=== PATIENT | female | born 1985 | race Caucasian/White ===

== ENCOUNTER → 2017-06-01 | Outpatient (CLI) | payer BC ==
[2017-06-01 08:46] LABS: CH 31.3; CHCM 34.9; HCT 38.6 % (34.0-46.0); HDW 2.58; HGB 13.8 gm/dL (11.4-16.0); MCH 32.3 pg (25.0-35.0); MCHC 35.9 g/dL (31.0-37.0); MCV 90.1 fL (80.0-100.0); Mean Platelet Volume 7.5; RBC 4.28 m/uL (3.80-5.40); RDW 12.9 % (11.5-15.5); WBC 7.3 k/uL (3.8-10.6)
[2017-06-01 09:16] LABS: Glucose 83 mg/dL (74-99); Non-African American GFR(MDRD) >60 (>60 ml/min/1.73 sqM)
[2017-06-01 09:40] LABS: Hepatitis B Surface Ag Index 0.04
[2017-06-01 15:49] LABS: Treponemal Ab Non-Reactive (Non-Reactive)
== END | disposition home or self-care (01) ==
LOC: LABWHC1 07:59
PROVIDERS: ATTEND Obstetrics & Gynecology
DX: Z34.01 Encounter for supervision of normal first pregnancy, first trimester (principal); R53.83 Other fatigue
CPT/HCPCS: 36415; 82565; 82947; 84439; 84443; 85027; 86762; 86780; 86850; 86900; 86901; 87340; 87390

== ENCOUNTER → 2017-06-01 | Outpatient (CLI) | payer BC ==
--- NOTE | 2017-06-02 06:51 | US ---
EXAMINATION TYPE: US OB <= 14 wk fetus DATE OF EXAM: 06/01/2017 COMPARISON: NONE CLINICAL HISTORY: Z36 CONFIRM DATES. Confirm Dates, pt has no other complaints at this time EXAM PERFORMED: Transabdominal (TA) EXAM MEASUREMENTS: GESTATIONAL AGE / DATING Physician Established: (12 weeks/6 days) EDC: 12/08/2017 Dates by LMP: (12 weeks/6 days) EDC: 12/08/2017 Dates by First Scan: No prior Dates by Current Scan for: (11 weeks/5 days) EDC: 12/16/2017 MATERNAL ANATOMY Uterus: 14.9 x 6.5 x 10.4 cm/ Hypoechoic lesion posterior uterus= 1.7 x 1.1 x 1.5 cm ?pedunculated fi broid Right Ovary: 3.9 x 2.3 x 2.1 cm Left Ovary: 2.6 x 2.0 x 2.1 cm Post CDS / Adnexa: wnl Presence of free fluid: No Presence of corpus luteal cyst: Right Ovary= 1.9 x 1.9 x 2.0 cm Presence of subchorionic bleed: No GESTATION / SURVEY CRL: 4.9 cm (11 weeks/5 days) MSD: wnl Heart Rate: 153 bpm Rhythm: Normal IUP: Viable IUP Nuchal Translucency 10-14wks (normal less than 3mm): 1mm Date of LMP: 03/03/2017 Single live intrauterine gestation is confirmed as gestational sac and pole are seen. Yolk sac is not clearly identified. No free fluid is seen in pelvic cul-de-sac. Both ovaries are identified. In the periphery of the right ovary there is 1.9 cm hypoechoic lesion fe lt to reflect corpus luteal cyst. No suspicious extraovarian adnexal mass is noted. IMPRESSION: Single live intrauterine gestation is confirmed, mean crown-rump length is 4.9 cm corresponding to 11 week 5 day old fetus.
== END | disposition home or self-care (01) ==
LOC: RADUSWWP 16:17
PROVIDERS: ATTEND Obstetrics & Gynecology
DX: Z36 Encounter for antenatal screening of mother (principal); Z3A.11 11 weeks gestation of pregnancy
CPT/HCPCS: 76801; 76813

== ENCOUNTER → 2017-07-30 | Outpatient (CLI) | payer BC | END | disposition home or self-care (01) | LOC: LABWHC1 08:33 | PROVIDERS: ATTEND Obstetrics & Gynecology | DX: Z34.00 Encounter for supervision of normal first pregnancy, unspecified trimester (principal); Z3A.00 Weeks of gestation of pregnancy not specified | CPT/HCPCS: 36415; 81241 ==

== ENCOUNTER 2017-12-08 00:08 | Inpatient (IN) | payer BC ==
[2017-12-08] MEDS ORDERED: LIDOCAINE 1% (PF) 10 MG/ML (30 ML SDV) SQ PRN (00:50)
[2017-12-08] MEDS ORDERED: METHYLERGONOVINE 0.2 MG/ML 1 ML AMP IM PRN (00:50)
[2017-12-08] MEDS ORDERED: CARBOPROST TROMETHAMINE 250 MCG/ML 1 ML AMP IM PRN (00:50)
[2017-12-08] MEDS ORDERED: TERBUTALINE 1 MG/ML VIAL SQ PRN (00:50)
[2017-12-08] MEDS ORDERED: OXYTOCIN 10 UNIT/ML 1 ML VIAL IM PRN (00:50)
[2017-12-08] MEDS ORDERED: LACTATED RINGERS 1,000 ML IV SCH ×2 (01:00)
[2017-12-08] MEDS ORDERED: OXYTOCIN 20 UNITS/1000 ML NS 1,000 ML IV SCH ×2 (01:00→09:45)
[2017-12-08 01:29] LABS: Basophils % (A) 0 %; Eosinophils # (A) 0.1 k/uL (0-0.7); Eosinophils % (A) 1 %; HCT 35.5 % (34.0-46.0); HGB 11.8 gm/dL (11.4-16.0); Hypochromasia Slight; Lymphocytes # (A) 1.5 k/uL (1.0-4.8); Lymphocytes % (A) 17 %; MCH 29.7 pg (25.0-35.0); MCHC 33.1 g/dL (31.0-37.0); MCV 89.7 fL (80.0-100.0); Mean Platelet Volume 11.2; Monocytes # (A) 0.5 k/uL (0-1.0); Monocytes % (A) 6 %; Neutrophils # (A) 6.6 k/uL (1.3-7.7); Neutrophils % (A) 75 %; Platelet Count 122 k/uL (150-450); RBC 3.96 m/uL (3.80-5.40); RDW 15.5 % (11.5-15.5); WBC 8.8 k/uL (3.8-10.6)
[2017-12-08 01:38] LABS: INR 0.9 (<1.2); Partial Thromboplastin Time 22.1 sec (22.0-30.0); Prothrombin Time 9.4 sec (9.0-12.0)
[2017-12-08 01:40] LABS: ALT 29 U/L (9-52); AST 21 U/L (14-36); Blood Urea Nitrogen 8 mg/dL (7-17); LDH 496 U/L (313-618); Uric Acid 5.6 mg/dL (3.7-7.4)
[2017-12-08 01:49] VITALS: BMI 29.2
[2017-12-08 02:03] LABS: Large Platelets Present
[2017-12-08] MEDS ORDERED: SODIUM CHLORIDE 0.9% 100 ML BAG ONE (02:30)
[2017-12-08] MEDS ORDERED: BUPIVACAINE (PF) 0.25% 30 ML VIAL ONE (02:30)
[2017-12-08] MEDS ORDERED: fentaNYL (PF) 50 MCG/ML 5 ML AMP ONE (02:30)
[2017-12-08] MEDS ORDERED: BUPIVACAINE (PF) 0.25% 25 ML, fentaNYL (PF) 200 MCG in SODIUM CHLORIDE 0.9% 71 ML EPIDURAL ONE (03:06)
[2017-12-08 04:06] LABS: Appearance,Urine Clear (Clear); Bilirubin,Urine Negative (Negative); Blood,Urine Moderate (Negative); Color,Urine Yellow; Glucose,Urine (UA) Negative (Negative); Ketones,Urine 1+ (Negative); Leukocyte Esterase,Urine Negative (Negative); Mucus,Urine Few /hpf; Nitrite,Urine Negative (Negative); PH, Urine 6.5 (5.0-8.0); Protein,Urine Trace (Negative); RBC,Urine 84 /hpf (0-5); Specific Gravity,Urine 1.018 (1.001-1.035); Squamous Epithelial Cell,Urine 1 /hpf (0-4); Urobilinogen,Urine <2.0 mg/dL (<2.0); WBC,Urine 1 /hpf (0-5)
[2017-12-08] MEDS ORDERED: diphenhydrAMINE 50 MG/ML 1 ML VIAL IVP PRN (09:34)
[2017-12-08] MEDS ORDERED: LANOLIN CREAM 5 GM TUBE TOPICAL PRN (09:34)
[2017-12-08] MEDS ORDERED: SIMETHICONE 80 MG CHEWABLE PO PRN (09:34)
[2017-12-08] MEDS ORDERED: BISACODYL 10 MG SUPP RECTAL PRN (09:34)
[2017-12-08] MEDS ORDERED: ZOLPIDEM 5 MG TAB PO PRN (09:34)
[2017-12-08] MEDS ORDERED: WITCH HAZEL 1 EACH MED..PAD TOPICAL PRN (09:34)
[2017-12-08] MEDS ORDERED: ACETAMINOPHEN TAB 325 MG TAB PO PRN (09:34)
[2017-12-08] MEDS ORDERED: HYDROCORTISONE 2.5% RECTAL CREAM 30 GM TUBE RECTAL PRN (09:34)
[2017-12-08] MEDS ORDERED: BENZOCAINE/MENTHOL SPRAY 1 GM/SPRAY AEROSOL TOPICAL PRN (09:34)
[2017-12-08] MEDS ORDERED: Acetaminophen-Codeine 300-30mg TAB PO PRN ×2 (09:34)
[2017-12-08] MEDS ORDERED: diphenhydrAMINE 25 MG CAP PO PRN (09:34)
[2017-12-08] MEDS: IBUPROFEN 600 MG TAB PO PRN ×2 (09:49→20:04)
--- NOTE | 2017-12-08 12:19 | P.HPOB ---
History of Present Illness H&P Date: 12/08/17 Chief Complaint: Leaking fluid. This patient is a pleasant 32-year-old 1 para 0 female estimated date of confinement 12/16 2017 estimated gestational age 38-6/7 weeks gestation who is admitted last evening by Dr. Guardado with gush of fluid that occurred at approximately 11:30. Patient's care is per Dr. Lauren and appears to be uncomplicated. Patient is having some contractions that are irregular. Review of Systems Gastrointestinal: Reports heartburn Genitourinary: Reports Menstruation: Reports amenorrhea Past Medical History Past Medical History: Thyroid Disorder History of Any Multi-Drug Resistant Organisms: None Reported, MRSA Date of last positivie culture/infection: 04/15/16 MDRO Source:: face Past Surgical History: No Surgical Hx Reported Additional Past Surgical History / Comment(s): wisdom teeth Past Anesthesia/Blood Transfusion Reactions: No Reported Reaction Additional Past Anesthesia/Blood Transfusion Reaction / Comment(s): never had transfusion Past Psychological History: No Psychological Hx Reported Smoking Status: Never smoker Past Alcohol Use History: Rare Past Drug Use History: None Reported - Past Family History Father Family Medical History: Hypertension Medications and Allergies Home Medications Medication Instructions Recorded Confirmed Type Cephalexin [Keflex] 500 mg PO Q6HR 04/15/16 12/08/17 History Levothyroxine Sodium [Synthroid] 50 mcg PO DAILY 04/15/16 12/08/17 History Sulfamethox-Tmp 800-160Mg [Bactrim 2 each PO Q12HR #40 tab 04/15/16 12/08/17 Rx DS 800-160 mg] Pnv No.95/Ferrous Fum/Folic AC 1 tab PO ONCE 12/08/17 12/08/17 History [ Multivitamin Tablet] Allergies Allergy/AdvReac Type Severity Reaction Status Date / Time No Known Allergies Allergy Verified 04/15/16 03:12 Exam - Vital Signs Vital signs: Vital Signs Temp Pulse Resp BP Pulse Ox 12/08/17 11:37 97 16 139/80 12/08/17 11:06 93 14 129/79 12/08/17 10:37 98.8 F 84 16 135/62 12/08/17 10:22 78 14 132/68 12/08/17 10:07 78 14 131/64 12/08/17 09:51 90 14 132/90 12/08/17 09:37 98.3 F 100 18 153/70 12/08/17 01:33 97.9 F 77 16 128/61 12/08/17 00:31 84 18 175/89 99 Intake and Output 12/07/17 12/08/17 12/08/17 22:59 06:59 14:59 Intake Total 1000 Balance 1000 Intake: IV 1000 Lactated Ringers 1,000 ml 1000 @ 999 mls/hr IV .Q1H1M [facility] Rx#:[id number] Other: # Voids 1 Weight 72.575 kg - OBG Physical Exam Abdomen: bowel sounds normal, no diffuse tenderness, no bruit present, no guarding noted, no hepatomegaly, no splenomegaly, no mass Vulva: both: normal Vagina: normal moisture, no discharge Cervix: no lesion, no discharge Uterus: enlarged (Fundal height is consistent with a term .) Results blood work shows she is A positive, rubella immune, RPR nonreactive, hepatitis B negative, HIV nonreactive, Glucola was 158 with a normal three-hour gtt. Patient did have a mild thrombocytopenia of 123 at the time of her Glucola. Ultrasounds have been normal. Result Diagrams: 12/08/17 01:20 12/08/17 01:20 Abnormal Lab Results - Last 24 Hours (Table) 12/08/17 12/08/17 12/08/17 Range/Units 01:20 01:20 03:42 Plt Count 122 L (150-450) k/uL Fibrinogen 518 H (200-500) mg/dL Urine Protein Trace H (Negative) Urine Ketones 1+ H (Negative) Urine Blood Moderate H (Negative) Urine RBC 84 H (0-5) /hpf Urine Mucus Few H (None) /hpf Assessment and Plan Assessment: This is a pleasant 32-year-old 1 para 0 female 38-6/7 weeks gestation with spontaneous rupture membranes and early active labor. Plan was admission for delivery. (1) Spontaneous rupture of amniotic membranes Current Visit: Yes Status: Acute Code(s): PAT1482 - SNOMED Code(s): 376837449 (2) Third trimester Current Visit: Yes Status: Acute Code(s): Z34.93 - ENCNTR FOR SUPRVSN OF NORMAL PREG, UNSP, THIRD TRIMESTER SNOMED Code(s): 61307334
--- NOTE | 2017-12-08 12:23 | P.PROBDLV ---
Vaginal Delivery Note - . Vaginal Delivery Note: Normal vaginal delivery viable male infant Apgars are 8 and 9 at 0913 hrs. Please see dictated H&P for intimate details of this patient's admission. Brief summary this is a pleasant 32-year-old 1 para 0 female 38-6/7 weeks gestation admitted to labor and delivery spontaneous rupture membranes and early labor. Patient's labor does progress and she has rupture of a fore bag earlier this morning. Patient's labor progresses quickly thereafter and she pushes the head to the perineum. Posterior perineum is supported and we have controlled delivery of the infant's head over the intact perineum. There is no evidence of a nuchal cord. I bulb suction the mouth and nose. The anterior shoulder spontaneously delivers and then the posterior shoulder and rest this 's body. This is a vigorous viable male Apgars are 8 and 9 delivery time was 0913 hrs. After delivery of the infant the umbilical cord is doubly clamped and cut appears to be trivascular. The placenta is spontaneously delivered intact. Estimated blood loss is 150 mL. Inspection of perineum shows a left labial laceration and a second-degree posterior vaginal laceration of the perineum both of which repaired with 3-0 Vicryl in the usual fashion in good reapproximation is noted. All counts are correct 3. There are no complications. and mother stable delivery room.
[2017-12-08] MEDS: SENNOSIDES-DOCUSATE SODIUM 1 EACH TAB PO SCH (20:05)
[2017-12-08 20:23] VITALS: RESP 16
--- NOTE | 2017-12-09 06:17 | P.PNOBGVD ---
Subjective - Subjective Patient reports: Reports appetite normal, Reports voiding normally, Reports pain well controlled, Reports ambulating normally : doing well Objective - Latest Vital Signs Latest vital signs: Vital Signs Temp Pulse Resp BP Pulse Ox 12/09/17 04:00 16 12/09/17 00:00 98.1 F 77 16 129/78 12/08/17 20:00 98.2 F 84 16 138/73 12/08/17 16:00 97.8 F 94 17 122/70 98 12/08/17 11:37 97 16 139/80 12/08/17 11:06 93 14 129/79 12/08/17 10:37 98.8 F 84 16 135/62 12/08/17 10:22 78 14 132/68 12/08/17 10:07 78 14 131/64 12/08/17 09:51 90 14 132/90 12/08/17 09:37 98.3 F 100 18 153/70 Intake and Output 12/08/17 12/08/17 12/09/17 14:59 22:59 06:59 Intake Total 1950 Balance 1950 Intake: IV 1200 Lactated Ringers 1,000 ml 1200 @ 999 mls/hr IV .Q1H1M [facility] Rx#:[id number] Intake, IV Titration 750 Amount Oxytocin 20 Units/1000 ml 750 Ns 1,000 ml @ Per Protocol IV .Q0M [facility] Rx#: [id number] Other: # Voids 1 - Exam Lungs: bilateral: normal Chest: Normal S1, Normal S2 Extremities: Present: normal Abdomen: Present: normal appearance, soft Uterus: Present: normal, firm Assessment and Plan Assessment: Patient is resting without complaints and wishes to go home. Vital signs are stable she is afebrile. Uterus is firm nontender she's having normal lochia. My impression this is a normal course. Plan is to continue routine care and discharge home later today. (1) Spontaneous rupture of amniotic membranes Current Visit: Yes Status: Acute Code(s): IUH6436 - SNOMED Code(s): 412564001 (2) Third trimester Current Visit: Yes Status: Acute Code(s): Z34.93 - ENCNTR FOR SUPRVSN OF NORMAL PREG, UNSP, THIRD TRIMESTER SNOMED Code(s): 57417380
--- NOTE | 2017-12-09 06:19 | P.DS ---
Providers Date of admission: 12/08/17 00:30 Expected date of discharge: 12/09/17 Attending physician: Gloria Lauren Primary care physician: Stated None - Discharge Diagnosis(es) (1) Spontaneous rupture of amniotic membranes Current Visit: Yes Status: Acute (2) Third trimester Current Visit: Yes Status: Acute Hospital Course: Please see dictated H&P for intimate details of this patient's admission. Brief summary this is a 32-year-old 1 para 0 female 38-6/7 weeks gestation admitted to labor and delivery with spontaneous rupture membranes in early labor. Patient was on have a vaginal delivery viable male infant. Please see dictated delivery note. day #1 patient without complaints and wishes to go home. Patient's felt stable discharge home follow up with Dr. Lauren Procedures: Normal spontaneous vaginal delivery Patient Condition at Discharge: Good Plan - Discharge Summary Discharge Rx Participant: No New Discharge Prescriptions: New Ibuprofen [Motrin] 600 mg PO Q6HR PRN #40 tab PRN Reason: Mild Pain Or Fever >= 100.5 No Action Cephalexin [Keflex] 500 mg PO Q6HR Levothyroxine Sodium [Synthroid] 50 mcg PO DAILY Sulfamethox-Tmp 800-160Mg [Bactrim DS 800-160 mg] 2 each PO Q12HR #40 tab Pnv No.95/Ferrous Fum/Folic AC [ Multivitamin Tablet] 1 tab PO ONCE Discharge Medication List Cephalexin [Keflex] 500 mg PO Q6HR 04/15/16 [History] Levothyroxine Sodium [Synthroid] 50 mcg PO DAILY 04/15/16 [History] Sulfamethox-Tmp 800-160Mg [Bactrim DS 800-160 mg] 2 each PO Q12HR #40 tab [Rx] Pnv No.95/Ferrous Fum/Folic AC [ Multivitamin Tablet] 1 tab PO ONCE [History] Ibuprofen [Motrin] 600 mg PO Q6HR PRN #40 tab 12/09/17 [Rx] Follow up Appointment(s)/Referral(s): Gloria Lauren DO [Doctor of Osteopathic Medicine] - 6 Weeks Patient Instructions/Handouts: Vaginal Delivery (DC) Activity/Diet/Wound Care/Special Instructions: No intercourse or anything per vagina for 6 weeks. Please call if any fever, chills, excessive vaginal bleeding, and/or abdominal pain. Discharge Disposition: HOME SELF-CARE
[2017-12-09 11:48] VITALS: BP 134/72; PULSE 98; TEMP 98.8
[2017-12-09] MEDS: SENNOSIDES-DOCUSATE SODIUM 1 EACH TAB PO SCH (11:50)
== END 2017-12-09 13:50 | disposition home or self-care (01) | DRG 775 ==
LOC: FBPOP 00:08 → 4FBP 00:30
PROVIDERS: ADMIT Obstetrics & Gynecology; ATTEND Obstetrics & Gynecology
PROC: 10E0XZZ Delivery of Products of Conception, External Approach (ICD-10-PCS; principal; 2017-12-08)
PROC: 0KQM0ZZ Repair Perineum Muscle, Open Approach (ICD-10-PCS; 2017-12-08)
PROC: 00HU33Z Insertion of Infusion Device into Spinal Canal, Percutaneous Approach (ICD-10-PCS; 2017-12-08)
PROC: 3E0R3BZ Introduction of Anesthetic Agent into Spinal Canal, Percutaneous Approach (ICD-10-PCS; 2017-12-08)
DX: O70.1 Second degree perineal laceration during delivery (principal); Z37.0 Single live birth; E07.9 Disorder of thyroid, unspecified; O99.284 Endocrine, nutritional and metabolic diseases complicating childbirth; Z3A.38 38 weeks gestation of pregnancy; Z79.899 Other long term (current) drug therapy; Z86.14 Personal history of Methicillin resistant Staphylococcus aureus infection
CPT/HCPCS: 59025; 81001; 82565; 83615; 84112; 84450; 84460; 84520; 84550; 85025; 85384; 85610; 85730; 88307; 99213

== ENCOUNTER → 2018-10-17 | Outpatient (CLI) | payer BC ==
[2018-10-17 08:18] LABS: HCT 47.7 % (34.0-46.0); HGB 15.4 gm/dL (11.4-16.0); MCH 30.8 pg (25.0-35.0); MCHC 32.3 g/dL (31.0-37.0); MCV 95.6 fL (80.0-100.0); Mean Platelet Volume 8.4; Platelet Count 198 k/uL (150-450); RBC 4.99 m/uL (3.80-5.40); RDW 12.6 % (11.5-15.5); WBC 4.2 k/uL (3.8-10.6)
[2018-10-17 20:58] LABS: ACTH 12.6 pg/mL (0.00-45.99)
== END | disposition home or self-care (01) ==
LOC: LABWHC1 07:51
PROVIDERS: ATTEND Internal Medicine Endocrinology, Diabetes & Metabolism
DX: R53.83 Other fatigue (principal)
CPT/HCPCS: 36415; 82024; 82533; 82607; 84146; 85027

== ENCOUNTER → 2018-10-20 | Outpatient (CLI) | payer BC ==
--- NOTE | 2018-10-21 09:40 | US ---
EXAMINATION TYPE: US thyroid st tissue head/neck DATE OF EXAM: 10/20/2018 COMPARISON: US 2013 CLINICAL HISTORY: E04.9 Nontoxic goiter, unspecified. Goiter GLAND SIZE: Right Lobe: 5.9 x 1.7 x 1.7 cm Overall Parenchyma: heterogenous Left Lobe: 4.6 x 1.5 x 1.6 cm Overall Parenchyma: heterogeneous Isthmus Thickness: 0.5 cm Bilateral neck scanned, no evidence of lymphadenopathy. Bilateral thyroid grossly heterogeneous bilat erally and slightly hypervascular IMPRESSION: Diffusely enlarged and heterogenous thyroid gland is slightly hypervascular. Findings can be seen in thyroiditis. Correlate with serum laboratory values. No discrete nodule.
== END ==
LOC: RADUSWWP 16:44
PROVIDERS: ATTEND Internal Medicine Endocrinology, Diabetes & Metabolism
DX: E04.9 Nontoxic goiter, unspecified (principal)
CPT/HCPCS: 76536

== ENCOUNTER → 2018-11-08 | Outpatient (CLI) | payer BC | END | disposition home or self-care (01) | LOC: LABWHC1 12:52 | PROVIDERS: ATTEND Internal Medicine Endocrinology, Diabetes & Metabolism | DX: E03.8 Other specified hypothyroidism (principal); R53.83 Other fatigue | CPT/HCPCS: 36415; 84445; 86376 ==

== ENCOUNTER → 2018-11-22 | Outpatient (CLI) | payer BC | END | disposition home or self-care (01) | LOC: LABWHC1 17:09 | PROVIDERS: ATTEND Internal Medicine Endocrinology, Diabetes & Metabolism | DX: E03.8 Other specified hypothyroidism (principal) | CPT/HCPCS: 36415; 84443 ==

== ENCOUNTER → 2019-01-31 | Outpatient (CLI) | payer BC | LOC: LABWHC1 16:44 | PROVIDERS: ATTEND Internal Medicine Endocrinology, Diabetes & Metabolism | DX: E03.8 Other specified hypothyroidism (principal) | CPT/HCPCS: 36415; 84443 ==

== ENCOUNTER → 2019-10-24 | Outpatient (CLI) | payer BC | END | disposition home or self-care (01) | LOC: LABWHC1 07:03 | PROVIDERS: ATTEND Internal Medicine Endocrinology, Diabetes & Metabolism | DX: E03.8 Other specified hypothyroidism (principal) | CPT/HCPCS: 36415; 84443 ==

== ENCOUNTER → 2019-10-26 | Outpatient (CLI) | payer BC ==
--- NOTE | 2019-10-26 18:02 | US ---
EXAMINATION TYPE: US thyroid st tissue head/neck DATE OF EXAM: 10/26/2019 COMPARISON: 10/20/2018 CLINICAL HISTORY: E04.1 Nontoxic single nodule. No hx of thyroid biopsy. On thyroid meds. GLAND SIZE: Right Lobe: 4.4 x 1.6 x 1.3 cm Overall Parenchyma: heterogenous Left Lobe: 4.2 x 1.6 x 1.2 cm Overall Parenchyma: heterogeneous Isthmus Thickness: 0.4 cm NODULES RIGHT: # of nodules measured on right: 0 LEFT: # of nodules measured on left: 0 ISTHMUS: # of nodules measured in the isthmus: 0 Bilateral neck scanned, no evidence of lymphadenopathy. IMPRESSION: 1. Thyroid tissue is heterogeneous without evidence of discrete nodule correlate for thyroiditis. The re is interval reduction in the size of the thyroid gland.
== END | disposition home or self-care (01) ==
LOC: RADUSWWP 16:13
PROVIDERS: ATTEND Internal Medicine Endocrinology, Diabetes & Metabolism
DX: E04.1 Nontoxic single thyroid nodule (principal)
CPT/HCPCS: 76536

== ENCOUNTER → 2019-12-19 | Outpatient (CLI) | payer BC | END | disposition home or self-care (01) | LOC: LABWHC1 07:06 | PROVIDERS: ATTEND Internal Medicine Endocrinology, Diabetes & Metabolism | DX: E03.8 Other specified hypothyroidism (principal) | CPT/HCPCS: 36415; 84443 ==

== ENCOUNTER → 2020-06-25 | Outpatient (CLI) | payer BC ==
[2020-06-25 12:20] LABS: T4, Free (Free Thyroxine) 1.2 ng/dL (0.80-1.80)
== END | disposition home or self-care (01) ==
LOC: LABWHC1 07:03
PROVIDERS: ATTEND Internal Medicine Endocrinology, Diabetes & Metabolism
DX: E04.1 Nontoxic single thyroid nodule (principal); E03.8 Other specified hypothyroidism
CPT/HCPCS: 36415; 84439; 84443

== ENCOUNTER → 2020-12-24 | Outpatient (CLI) | payer BC ==
--- NOTE | 2020-12-24 12:57 | US ---
EXAMINATION TYPE: US thyroid st tissue head/neck DATE OF EXAM: 12/24/2020 COMPARISON: US US 10/26/18, 10/20/18 CLINICAL HISTORY: E03.8 HYPOTHYROIDISM. GLAND SIZE: Right Lobe: 5.0 x 1.3 x 1.2 cm Overall Parenchyma: heterogenous Left Lobe: 4.3 x 1.3 x 1.2 cm Overall Parenchyma: heterogeneous Isthmus Thickness: 0.4 cm NODULES RIGHT: # of nodules measured on right: 0 LEFT: # of nodules measured on left: 0 ISTHMUS: # of nodules measured in the isthmus: 0 Bilateral neck scanned, no evidence of lymphadenopathy. Heterogeneous texture bilaterally. IMPRESSION: 1. Mild heterogeneity. Discrete nodules are not identified
== END | disposition home or self-care (01) ==
LOC: RADUSWWP 12:16
PROVIDERS: ATTEND Internal Medicine Endocrinology, Diabetes & Metabolism
DX: E03.8 Other specified hypothyroidism (principal)
CPT/HCPCS: 76536; 84443

== ENCOUNTER → 2021-07-03 | Outpatient (CLI) | payer BC | END | disposition home or self-care (01) | LOC: LABWHC1 14:15 | PROVIDERS: ATTEND Internal Medicine Endocrinology, Diabetes & Metabolism | DX: E03.8 Other specified hypothyroidism (principal) | CPT/HCPCS: 36415; 84443 ==

== ENCOUNTER → 2021-12-29 | Outpatient (CLI) | payer BC | END | disposition home or self-care (01) | LOC: LABWHC1 07:09 | PROVIDERS: ATTEND Internal Medicine Endocrinology, Diabetes & Metabolism | DX: E03.8 Other specified hypothyroidism (principal) | CPT/HCPCS: 36415; 84443 ==

== ENCOUNTER → 2022-02-16 | Outpatient (CLI) | payer BC ==
[2022-02-16 10:34] LABS: T4, Free (Free Thyroxine) 1.21 ng/dL (0.800-1.800)
== END | disposition home or self-care (01) ==
LOC: LABWHC1 07:07
PROVIDERS: ATTEND Internal Medicine Endocrinology, Diabetes & Metabolism
DX: E03.8 Other specified hypothyroidism (principal); R53.83 Other fatigue
CPT/HCPCS: 36415; 82533; 84439; 84443; 84480

== ENCOUNTER → 2022-05-17 | Outpatient (CLI) | payer BC ==
[2022-05-17 14:30] LABS: Estradiol 34.3 pg/mL
[2022-05-17 14:34] LABS: African American GFR (CKD) 129.7 (60.0-200.0); Albumin 4.3 g/dL (3.8-4.9); Albumin/Globulin Ratio 1.6 (1.60-3.17); Anion Gap 9.8 mmol/L (10.00-18.00); BUN/Creat Ratio 18.81 Ratio (12.00-20.00); Calcium 9.2 mg/dL (8.7-10.3); Carbon Dioxide 26.3 mmol/L (20.0-27.5); Follicle Stimulating Hormone 7.1 mIU/mL; Globulin 2.7 g/dL (1.6-3.3); Luteinizing Hormone 16.3 mIU/mL; Non-African American GFR(CKD) 111.9 (60.0-200.0); Potassium 4.7 mmol/L (3.5-5.5); Prolactin 14.6 ng/mL (2.800-29.200); Total Bilirubin 0.2 mg/dL (0.30-1.20); Total Protein 7.1 g/dL (6.2-8.2)
== END | disposition home or self-care (01) ==
LOC: LABWHC1 07:17
PROVIDERS: ATTEND Internal Medicine Endocrinology, Diabetes & Metabolism
DX: E03.8 Other specified hypothyroidism (principal); R79.89 Other specified abnormal findings of blood chemistry
CPT/HCPCS: 36415; 80053; 82024; 82533; 82670; 83001; 83002; 84146; 84443

== ENCOUNTER → 2022-11-17 | Outpatient (CLI) | payer BC | END | disposition home or self-care (01) | LOC: LABWHC1 15:47 | PROVIDERS: ATTEND Internal Medicine Endocrinology, Diabetes & Metabolism | DX: E03.8 Other specified hypothyroidism (principal); R79.89 Other specified abnormal findings of blood chemistry | CPT/HCPCS: 36415; 84443 ==

== ENCOUNTER → 2022-11-19 | Outpatient (CLI) | payer BC ==
--- NOTE | 2022-11-19 18:11 | US ---
EXAMINATION TYPE: US venous doppler duplex LE RT DATE OF EXAM: 11/19/2022 5:40 PM COMPARISON: NONE CLINICAL HISTORY: M79.604 R22.40. Pain in right leg x 2 days. No hx of DVT. Patient does not take bl ood thinners. SIDE PERFORMED: Right TECHNIQUE: The lower extremity deep venous system is examined utilizing real time linear array sonog mahin with graded compression, doppler sonography and color-flow sonography. VESSELS IMAGED: Common Femoral Vein Deep Femoral Vein Greater Saphenous Vein * Femoral Vein Popliteal Vein Small Saphenous Vein * Proximal Calf Veins (* superficial vessels) Right Leg: No evidence of DVT in veins imaged. IMPRESSION: No evidence of deep vein thrombosis of the right lower extremity.
== END | disposition home or self-care (01) ==
LOC: RADUSWWP 17:13
PROVIDERS: ATTEND Family Medicine
DX: M79.604 Pain in right leg (principal); R22.40 Localized swelling, mass and lump, unspecified lower limb

== ENCOUNTER 2022-12-05 21:35 | Emergency (ER) | payer BC ==
[2022-12-05 21:42] VITALS: TEMP 98.5
[2022-12-05] MEDS ORDERED: ONDANSETRON 4 MG/2 ML VIAL IVP STA (21:57)
[2022-12-05] MEDS ORDERED: SODIUM CHLORIDE 0.9% 1,000 ML IV STA (21:57)
[2022-12-05] MEDS ORDERED: KETOROLAC 15 MG/ML 1 ML VIAL IVP STA (21:57)
[2022-12-05] MEDS ORDERED: MORPHINE SULFATE 4 MG/ML SYRINGE IVP STA (21:58)
--- NOTE | 2022-12-05 21:59 | ED ---
Abdominal Pain HPI - General Chief Complaint: Abdominal Pain Stated Complaint: Abdominal pain Time Seen by Provider: 12/05/22 21:45 Source: patient, RN notes reviewed, old records reviewed Mode of arrival: ambulatory Limitations: no limitations - History of Present Illness Initial Comments: This is a 37-year-old female to the ER today. Patient presents today for evaluation regards to abdominal pain epigastric abdominal pain right upper quadrant abdominal pain with nausea. Diminished appetite no vomiting. Family state without difficulty. Patient states symptoms started after she woke up and event persistent but intermittent and she currently has no significant pain. Patient has no medical history takes no medications is no surgical history MD Complaint: abdominal pain -: hour(s) Location: RUQ, epigastric Radiation: RUQ, epigastric Migration to: epigastric Severity: moderate Severity scale (1-10): 6 Quality: fullness, sharp Consistency: intermittent Improves With: nothing Worsens With: nothing Context: other (0) Associated Symptoms: nausea Treatments Prior to Arrival: other (0) - Related Data Home Medications Medication Instructions Recorded Confirmed Cephalexin [Keflex] 500 mg PO Q6HR 04/15/16 12/08/17 Levothyroxine Sodium [Synthroid] 50 mcg PO DAILY 04/15/16 12/08/17 Pnv No.95/Ferrous Fum/Folic AC 1 tab PO ONCE 12/08/17 12/08/17 [ Multivitamin Tablet] Previous Rx's Medication Instructions Recorded Sulfamethox-Tmp 800-160Mg [Bactrim 2 each PO Q12HR #40 tab 04/15/16 DS 800-160 mg] Ibuprofen [Motrin] 600 mg PO Q6HR PRN #40 tab 12/09/17 Allergies Allergy/AdvReac Type Severity Reaction Status Date / Time No Known Allergies Allergy Verified 04/15/16 03:12 Review of Systems ROS Statement: Those systems with pertinent positive or pertinent negative responses have been documented in the HPI. ROS Other: All systems not noted in ROS Statement are negative. Past Medical History Past Medical History: Thyroid Disorder History of Any Multi-Drug Resistant Organisms: None Reported, MRSA Date of last positivie culture/infection: 04/15/16 MDRO Source:: face Past Surgical History: No Surgical Hx Reported Additional Past Surgical History / Comment(s): wisdom teeth Past Anesthesia/Blood Transfusion Reactions: No Reported Reaction Additional Past Anesthesia/Blood Transfusion Reaction / Comment(s): never had transfusion Past Psychological History: No Psychological Hx Reported Smoking Status: Never smoker Past Alcohol Use History: Rare Past Drug Use History: None Reported - Past Family History Father Family Medical History: Hypertension General Exam Limitations: no limitations General appearance: alert, in no apparent distress Head exam: Present: atraumatic, normocephalic, normal inspection Eye exam: Present: normal appearance, PERRL, EOMI. Absent: scleral icterus, conjunctival injection, periorbital swelling ENT exam: Present: normal exam, mucous membranes moist Neck exam: Present: normal inspection. Absent: tenderness, meningismus, lymphadenopathy Respiratory exam: Present: normal lung sounds bilaterally. Absent: respiratory distress, wheezes, rales, rhonchi, stridor Cardiovascular Exam: Present: regular rate, normal rhythm, normal heart sounds. Absent: systolic murmur, diastolic murmur, rubs, gallop, clicks GI/Abdominal exam: Present: soft, tenderness (RUQ), normal bowel sounds. Absent: distended, guarding, rebound, rigid Extremities exam: Present: normal inspection, full ROM, normal capillary refill. Absent: tenderness, pedal edema, joint swelling, calf tenderness Back exam: Present: normal inspection Neurological exam: Present: alert, oriented X3, CN II-XII intact Psychiatric exam: Present: normal affect, normal mood Skin exam: Present: warm, dry, intact, normal color. Absent: rash Course Vital Signs 12/05/22 21:36 Temperature 98.5 F Pulse Rate 116 H Respiratory 17 Rate Blood Pressure 134/75 O2 Sat by Pulse 97 Oximetry - Reevaluation(s) Reevaluation #1: 12/05/22 22:31 medical record is reviewed Reevaluation #2: 12/05/22 22:31 patient symptoms are improved here in the emergency department Reevaluation #3: 12/05/22 23:23 patient informed of results and questions answered Reevaluation #4: 12/05/22 22:32 Differential Abdominal Pain Women: Appendicitis, Cholecystitis, diverticulosis, ischemic bowel, pancreatitis, hepatitis, UTI, gastroenteritis, AAA, incarcerated hernia, bowel obstruction, constipation, inflammatory bowel, hepatitis, peptic ulcer disease, splenic infarction, perforated viscus, vulvitis, ovarian torsion, PID, kidney stone, placenta abruption, this is not meant to be an all-inclusive list Reevaluation #5: 12/05/22 22:32 Was pt. sent in by a medical professional or institution? @ -no Did you speak to anyone other than the patient for history? @ -no Did you review nursing and triage notes? @ -agree Were old charts reviewed? @ -no Differential Diagnosis? @ -abdominal pain women EKG interpreted by me (3pts min.)? @ -[none] X-rays interpreted by me (1pt min.)? @ -[none] CT interpreted by me (1pt min.)? @ -[none] U/S interpreted by me (1pt. min.)? @ -[none] What testing was considered but not performed? (CT, X-rays, U/S, labs)? Why? @ -no What meds were considered but not given? Why? @ -[none] Did you discuss the management of the patient with other professionals? @ -no Did you reconcile home meds? @ -[none] Was smoking cessation discussed for >3mins.? @ -[none] Was critical care preformed (if so, how long)? @ -[none] Were there social determinants of health that impacted care today? How? (Homelessness, low income, unemployed, alcoholism, drug addiction, transportation, low edu. Level, literacy, decrease access to med. care, half-way, rehab)? @ -no Was there de-escalation of care discussed even if they declined? (Discuss DNR or withdrawal of care, Hospice)? @ -no What co-morbidities impacted this encounter? (DM, HTN, Smoking, COPD, CAD, Cancer, CVA, Hep., AIDS, mental health diagnosis, sleep apnea, morbid obesity)? @ -no Was patient admitted / discharged? @ -dc Undiagnosed new problem with uncertain prognosis? @ -[none] Drug Therapy requiring intensive monitoring for toxicity (Heparin, Nitro, Insulin, Cardizem)? @ -[none] Were any procedures done? @ -[none] Diagnosis/symptom? @ -[default] Acute, or Chronic, or Acute on Chronic? @ -[default] Uncomplicated (without systemic symptoms) or Complicated (systemic symptoms)? @ -[default] Side effects of treatment? @ -[none] Exacerbation, Progression, or Severe Exacerbation] @ -[no] Poses a threat to life or bodily function? @ -[no] 12/05/22 23:23 Medical Decision Making - Medical Decision Making 37 female who does have abdominal pain here in the emergency room today. Pain has lasted all day intermittently, patient's pain remains relatively mild no active nausea vomiting. Patient is verbal occasional go whether here in the ER, labs are normal and she is currently pain-free she can be discharged home - Lab Data Result diagrams: 12/05/22 22:10 12/05/22 22:10 Lab Results 12/05/22 12/05/22 12/05/22 Range/Units 22:10 22:10 22:10 WBC 10.4 (3.8-10.6) k/uL RBC 5.08 (3.80-5.40) m/uL Hgb 15.5 (11.4-16.0) gm/dL Hct 46.1 H (34.0-46.0) % MCV 90.6 (80.0-100.0) fL MCH 30.6 (25.0-35.0) pg MCHC 33.7 (31.0-37.0) g/dL RDW 12.6 (11.5-15.5) % Plt Count 166 (150-450) k/uL MPV 7.9 Neutrophils % 83 % Lymphocytes % 11 % Monocytes % 4 % Eosinophils % 1 % Basophils % 0 % Neutrophils # 8.7 H (1.3-7.7) k/uL Lymphocytes # 1.2 (1.0-4.8) k/uL Monocytes # 0.4 (0-1.0) k/uL Eosinophils # 0.1 (0-0.7) k/uL Basophils # 0.0 (0-0.2) k/uL PT 10.0 (9.0-12.0) sec INR 0.9 (<1.2) APTT 22.2 (22.0-30.0) sec Sodium 135 L (137-145) mmol/L Potassium 4.2 (3.5-5.1) mmol/L Chloride 104 (98-107) mmol/L Carbon Dioxide 23 (22-30) mmol/L Anion Gap 8 mmol/L BUN 9 (7-17) mg/dL Creatinine 0.60 (0.52-1.04) mg/dL Est GFR (CKD-EPI)AfAm >90 (>60 ml/min/1.73 sqM) Est GFR (CKD-EPI)NonAf >90 (>60 ml/min/1.73 sqM) Glucose 124 H (74-99) mg/dL Plasma Lactic Acid Kip (0.7-2.0) mmol/L Calcium 8.9 (8.4-10.2) mg/dL Total Bilirubin 0.6 (0.2-1.3) mg/dL AST 24 (14-36) U/L ALT 18 (4-34) U/L Alkaline Phosphatase 110 (38-126) U/L Total Protein 7.4 (6.3-8.2) g/dL Albumin 4.2 (3.5-5.0) g/dL Amylase 55 (30-110) U/L Lipase 53 (23-300) U/L 12/05/22 Range/Units 22:10 WBC (3.8-10.6) k/uL RBC (3.80-5.40) m/uL Hgb (11.4-16.0) gm/dL Hct (34.0-46.0) % MCV (80.0-100.0) fL MCH (25.0-35.0) pg MCHC (31.0-37.0) g/dL RDW (11.5-15.5) % Plt Count (150-450) k/uL MPV Neutrophils % % Lymphocytes % % Monocytes % % Eosinophils % % Basophils % % Neutrophils # (1.3-7.7) k/uL Lymphocytes # (1.0-4.8) k/uL Monocytes # (0-1.0) k/uL Eosinophils # (0-0.7) k/uL Basophils # (0-0.2) k/uL PT (9.0-12.0) sec INR (<1.2) APTT (22.0-30.0) sec Sodium (137-145) mmol/L Potassium (3.5-5.1) mmol/L Chloride (98-107) mmol/L Carbon Dioxide (22-30) mmol/L Anion Gap mmol/L BUN (7-17) mg/dL Creatinine (0.52-1.04) mg/dL Est GFR (CKD-EPI)AfAm (>60 ml/min/1.73 sqM) Est GFR (CKD-EPI)NonAf (>60 ml/min/1.73 sqM) Glucose (74-99) mg/dL Plasma Lactic Acid Kip 1.4 (0.7-2.0) mmol/L Calcium (8.4-10.2) mg/dL Total Bilirubin (0.2-1.3) mg/dL AST (14-36) U/L ALT (4-34) U/L Alkaline Phosphatase (38-126) U/L Total Protein (6.3-8.2) g/dL Albumin (3.5-5.0) g/dL Amylase (30-110) U/L Lipase (23-300) U/L - Radiology Data Radiology results: report reviewed (US gallbladder negative for acute disaese), image reviewed Disposition Clinical Impression: Abdominal pain Disposition: HOME SELF-CARE Condition: Good Instructions (If sedation given, give patient instructions): Abdominal Pain (ED) Is patient prescribed a controlled substance at d/c from ED?: No Referrals: Luis Miguel Iqbal MD [Primary Care Provider] - 1-2 days Time of Disposition: 23:25
[2022-12-05 22:17] LABS: Basophils % (A) 0 %; Eosinophils # (A) 0.1 k/uL (0-0.7); Eosinophils % (A) 1 %; HCT 46.1 % (34.0-46.0); HGB 15.5 gm/dL (11.4-16.0); Lymphocytes # (A) 1.2 k/uL (1.0-4.8); Lymphocytes % (A) 11 %; MCH 30.6 pg (25.0-35.0); MCHC 33.7 g/dL (31.0-37.0); MCV 90.6 fL (80.0-100.0); Mean Platelet Volume 7.9; Monocytes # (A) 0.4 k/uL (0-1.0); Monocytes % (A) 4 %; Neutrophils # (A) 8.7 k/uL (1.3-7.7); Neutrophils % (A) 83 %; Platelet Count 166 k/uL (150-450); RBC 5.08 m/uL (3.80-5.40); RDW 12.6 % (11.5-15.5); WBC 10.4 k/uL (3.8-10.6)
[2022-12-05 22:30] LABS: ALT 18 U/L (4-34); AST 24 U/L (14-36); African American GFR (CKD) >90 (>60 ml/min/1.73 sqM); Albumin 4.2 g/dL (3.5-5.0); Alkaline Phosphatase 110 U/L (38-126); Amylase 55 U/L (30-110); Anion Gap 8 mmol/L; Blood Urea Nitrogen 9 mg/dL (7-17); Calcium 8.9 mg/dL (8.4-10.2); Carbon Dioxide 23 mmol/L (22-30); Chloride 104 mmol/L (98-107); Glucose 124 mg/dL (74-99); INR 0.9 (<1.2); Lipase 53 U/L (23-300); Non-African American GFR(CKD) >90 (>60 ml/min/1.73 sqM); Partial Thromboplastin Time 22.2 sec (22.0-30.0); Potassium 4.2 mmol/L (3.5-5.1); Sodium 135 mmol/L (137-145); Total Bilirubin 0.6 mg/dL (0.2-1.3); Total Protein 7.4 g/dL (6.3-8.2)
--- NOTE | 2022-12-05 22:55 | US ---
EXAMINATION TYPE: US gallbladder DATE OF EXAM: 12/05/2022 COMPARISON: NONE CLINICAL HISTORY: pain. TECHNIQUE: Multiple sonographic images of the right upper quadrant are obtained. FINDINGS: EXAM MEASUREMENTS: Liver Length: 13.7 cm Gallbladder Wall: 0.2 cm CBD: 0.2 cm Right Kidney: 11.0 x 4.3 x 4.5 cm BENCH EXAMINER NOTES: Extensive overlying bowel gas, technically difficult, limited study. Pancreas: Obscured by bowel gas Liver: wnl as seen Gallbladder: wnl Evidence for sonographic Rhodes's sign: no CBD: wnl Right Kidney: No hydronephrosis or masses seen IMPRESSION: Negative exam. No gallstones or dilated ducts.
[2022-12-05] MEDS ORDERED: PANTOPRAZOLE 40 MG/10 ML VIAL IVP STA (23:17)
[2022-12-05] MEDS ORDERED: ONDANSETRON 4 MG ODT STARTER PACK 2 TAB BTL PO STA (23:27)
[2022-12-05] MEDS ORDERED: traMADol 50 MG STARTER PACK 3 TAB BTL PO STA (23:27)
[2022-12-05 23:32] VITALS: BP 124/67; PULSE 85; RESP 14
== END 2022-12-05 23:33 | disposition home or self-care (01) ==
LOC: EC 21:35
DX: R10.13 Epigastric pain (principal); E07.9 Disorder of thyroid, unspecified; Z79.890 Hormone replacement therapy
CPT/HCPCS: 36415; 80053; 82150; 83605; 83690; 85025; 85610; 85730; 76705; 99284; 96374; 96375 ×2; 96361; J2405; J1885; S0119; C9113

== ENCOUNTER → 2023-06-02 | Outpatient (CLI) | payer BC | END | disposition home or self-care (01) | LOC: LABWHC1 12:53 | PROVIDERS: ATTEND Internal Medicine Endocrinology, Diabetes & Metabolism | DX: E03.8 Other specified hypothyroidism (principal) | CPT/HCPCS: 36415; 84443 ==

== ENCOUNTER → 2023-07-04 | Outpatient (CLI) | payer BC ==
--- NOTE | 2023-07-04 17:30 | US ---
EXAMINATION TYPE: US thyroid st tissue head/neck DATE OF EXAM: 07/04/2023 COMPARISON: 12/24/20 CLINICAL INDICATION: Female, 38 years old with history of E03.8 OTHER SPECIFIED HYPOTHYROIDISM; Hypot hyroidism. On medication GLAND SIZE: Right Lobe: 4.3 x 1.3 x 1.2 cm Overall Parenchyma: heterogenous Left Lobe: 4.7 x 1.5 x 1.2 cm Overall Parenchyma: heterogenous Isthmus Thickness: 0.43 cm NODULES RIGHT: # of nodules measured on right: 0 LEFT: # of nodules measured on left: 0 ISTHMUS: # of nodules measured in the isthmus: 0 Bilateral neck scanned, no evidence of lymphadenopathy. IMPRESSION: Diffusely heterogenous thyroid gland redemonstrated without discrete nodule.
== END | disposition home or self-care (01) ==
LOC: RADUSWWP 16:52
PROVIDERS: ATTEND Internal Medicine Endocrinology, Diabetes & Metabolism
DX: E03.8 Other specified hypothyroidism (principal)
CPT/HCPCS: 76536

== ENCOUNTER → 2023-08-30 | Outpatient (CLI) | payer BC | END | disposition home or self-care (01) | LOC: LABWHC1 14:08 | PROVIDERS: ATTEND Internal Medicine Endocrinology, Diabetes & Metabolism | DX: E03.8 Other specified hypothyroidism (principal) | CPT/HCPCS: 36415; 84443 ==

== ENCOUNTER → 2024-01-26 | Outpatient (CLI) | payer BC | END | disposition home or self-care (01) | LOC: LABWHC1 12:20 | PROVIDERS: ATTEND Internal Medicine Endocrinology, Diabetes & Metabolism | DX: E03.8 Other specified hypothyroidism (principal) | CPT/HCPCS: 36415; 84443 ==

== ENCOUNTER → 2024-04-18 | Outpatient (CLI) | payer BC | END | disposition home or self-care (01) | LOC: LABWHC1 15:35 | PROVIDERS: ATTEND Internal Medicine Endocrinology, Diabetes & Metabolism | DX: E03.8 Other specified hypothyroidism (principal) | CPT/HCPCS: 36415; 84443 ==

== ENCOUNTER → 2024-07-30 | Outpatient (CLI) | payer BC | END | disposition home or self-care (01) | LOC: LABWHC1 11:36 | PROVIDERS: ATTEND Internal Medicine Endocrinology, Diabetes & Metabolism | DX: E03.8 Other specified hypothyroidism (principal) | CPT/HCPCS: 36415; 84443 ==

== ENCOUNTER → 2025-01-26 | Outpatient (CLI) | payer BC | END | disposition home or self-care (01) | LOC: LABWHC1 08:09 | PROVIDERS: ATTEND Internal Medicine Endocrinology, Diabetes & Metabolism | DX: E03.8 Other specified hypothyroidism (principal) | CPT/HCPCS: 36415; 84443 ==